=== PATIENT | female | born 1980 | race Caucasian/White ===

== ENCOUNTER 2016-09-11 07:04 | Day surgery (SDC) | payer OTHER ==
[~2016-09-11] VITALS: Ht 152.4 cm; Wt 75.0 kg
[2016-09-11] VITALS (14 sets, daily range): BP systolic 97–147; BP diastolic 54–83; PULSE 58–78; RESP 9–22; Ht 152.4 cm; Wt 75.0 kg
[~2016-09-11 07:04] MED LIST: CEFAZOLIN 1 GM INJ ONE; SEVOFLURANE 15 MIN ONE
[2016-09-11] MEDS ORDERED: MULTI PO (08:08)
[2016-09-11 08:30] LABS: INR 0.94; PROTIME 12.6 Sec (12.2-14.2)
[2016-09-11 08:31] LABS: PARTIAL THROMBOPLASTIN TIME 34.6 Sec (25.0-35.0)
[2016-09-11 08:32] LABS: BASOPHILS % 0.6 % (0.0-2.0); EOSINOPHILS # 0.1 10^3/ul (0.0-0.5); EOSINOPHILS % 1.8 % (0.0-7.0); HEMATOCRIT 36.9 % (37.0-47.0); HEMOGLOBIN 12.6 g/dl (12.0-16.0); LYMPHOCYTES # 1.3 10^3/ul (0.8-2.9); LYMPHOCYTES % 37.7 % (15.0-51.0); MEAN CORPUSCULAR HGB CONC 34.1 g/dl (32.0-37.0); MEAN CORPUSCULAR VOLUME 87.9 fl (82.0-101.0); MONOCYTE # 0.3 10^3/ul (0.3-0.9); MONOCYTES % 7.3 % (0.0-11.0); NEUTROPHIL # 1.8 10^3/ul (1.6-7.5); NEUTROPHILS % 52.3 % (39.0-77.0); PLATELET COUNT 191 10^3/UL (140-415); RED CELL DISTRIBUTION WIDTH 12.5 % (11.5-14.5); WHITE BLOOD COUNT 3.4 10^3/ul (4.8-10.8)
[2016-09-11] MEDS ORDERED: FENTAnyl 50 MCG/ML VIAL ONE ×2 (08:35→09:49)
[2016-09-11] MEDS ORDERED: ONDANSETRON 4 MG INJ ONE ×2 (08:35→09:49)
[2016-09-11] MEDS ORDERED: PROPOFOL 20 ML ONE (08:35)
[2016-09-11] MEDS ORDERED: HYDROmorphONE 2 MG/ML SYG ONE (08:35)
[2016-09-11] MEDS ORDERED: ROCURONIUM 50 MG INJ ONE (08:35)
[2016-09-11] MEDS ORDERED: DEXAMETHASONE 4 MG/ML 1 ML INJ ONE (08:35)
[2016-09-11] MEDS ORDERED: MIDAZOLAM 1 MG/ML 2 ML INJ ONE (08:35)
[2016-09-11 08:49] LABS: ALBUMIN 4.7 g/dl (3.3-4.9); ALBUMIN/GLOBULIN RATIO 1.46; BILIRUBIN,INDIRECT 0.4 mg/dl (0-1.1); BILIRUBIN,TOTAL 0.4 mg/dl (0.2-1.3); TOTAL PROTEIN 7.9 g/dl (6.1-8.1)
[2016-09-11] MEDS ORDERED: SUGAMMADEX SODIUM 200 MG/2 ML VIAL IV ONE ×2 (09:14→09:20)
[2016-09-11] MEDS ORDERED: HYDROCODONE/APAP (5/325) TAB PO ONE (09:30)
[2016-09-11] MEDS ORDERED: SOD CHLORIDE 0.9% 1,000 ML IV ONE (09:30)
[2016-09-11] MEDS ORDERED: CEFAZOLIN 2 GM/50 ML (PMX) 50 ML IVPB ONE (09:30)
[2016-09-11] MEDS ORDERED: ACETAMINOPHEN 1000MG/100ML IV 100 ML ONE (09:31)
--- NOTE | 2016-09-11 09:33 | OPR ---
Date/Time of Note Date/Time of Note DATE: 09/11/16 TIME: 09:27 Operative Report Procedure Date: Sep 11, 2016 Preoperative Diagnosis incarcerated ventral hernia Postoperative Diagnosis same Operation Performed 1. laparoscopic incarcerated ventral hernia repair cpt code 17273 2. implantation of mesh cpt code 77534 3. therapeutic injection of subcutaneous marcaine cpt code 72709 4. laparoscopic lysis of adhesions Surgeon: Patrick HIGGINS Complications: None Indications This is a 36-year-old female with an incarcerated ventral hernia. She requires surgical repair. Risks alternatives benefits in personal discussed the patient. Patient expresses understanding and consents to the operation. Procedure Description Patient is taken to the OR and prepped and draped in usual sterile fashion. Surgical timeout was performed. IV antibiotics given. Left upper quadrant 5 mm transverse subcostal incision is made with a 15 blade. Using a 5 mm optical trocar optical entry is performed. Pneumoperitoneum is established. Left flank 12 mm optical trocar left lower quadrant 5 mm optical trochars were placed under direct visualization. Upon initial inspection there is incarcerated ventral hernia contents. Laparoscopic lysis of adhesions performed to mobilize the contents. The contents are fully reduced. The hernia is identified. The hernia is closed primarily with interrupted #1 Prolenes using Endo Close and laparoscopic techniques. Using underlay mesh the hernia defect is covered. The mesh used is a 10 x [address] mesh. This is secured in place with secure straps with approximately 4-5 cm of coverage in all directions. There is good hemostasis. Ports are removed under direct visualization. Skin is closed using skin parviz. Therapeutic subcutaneous injection of Marcaine along all port sites and incisions are placed. Dry dressings were applied. Patrick HIGGINS Sep 11, 2016 09:33
[2016-09-11] MEDS ORDERED: BUPIVACAINE 0.25% (MPF) 10 ML 10 ML VIAL INJ ONE (09:43)
[2016-09-11] MEDS: ONDANSETRON 4 MG INJ IV PRN ×2 (09:57→10:50)
[2016-09-11] MEDS ORDERED: DIPHENHYDRAMINE 50 MG INJ IV PRN (10:00)
[2016-09-11] MEDS ORDERED: FENTAnyl 50 MCG/ML VIAL IV PRN ×2 (10:00)
[2016-09-11] MEDS ORDERED: KETOROLAC 30 MG INJ IV PRN (10:00)
[2016-09-11] MEDS ORDERED: MIDAZOLAM 1 MG/ML 2 ML INJ IV PRN (10:00)
[2016-09-11] MEDS ORDERED: HYDROmorphONE (0.2 MG/ML) 10ML SYG IV PRN ×3 (10:00)
[2016-09-11] MEDS ORDERED: MEPERIDINE 25 MG INJ IV PRN (10:00)
[2016-09-11 10:17] LABS: CALCIUM 9.2 mg/dl (8.4-10.2); CREATININE 0.56 mg/dl (0.44-1.00); POTASSIUM 3.8 mmol/L (3.5-5.1)
[2016-09-11] MEDS ORDERED: HYDROmorphONE 1 MG/ML SYG ONE (10:44)
[2016-09-11] MEDS ORDERED: HYDROmorphONE 2 MG/ML SYG IV PRN ×3 (10:49→10:50)
== END 2016-09-11 13:15 | disposition home or self-care (01) ==
LOC: SDS 07:04
PROVIDERS: ATTEND Surgery
DX: K43.6 Other and unspecified ventral hernia with obstruction, without gangrene (principal); E66.9 Obesity, unspecified; Z68.32 Body mass index [BMI] 32.0-32.9, adult
CPT/HCPCS: 49653; 80053; 84703; 85025; 85610; 85730; C1781; J0131; J0690; J1100; J1170; J1885; J2250; J2405; J3010; Z7512; Z7610

== ENCOUNTER 2016-09-13 08:21 | Emergency (ER) | payer OTHER ==
[~2016-09-13] VITALS: Ht 160 cm; Wt 80.0 kg
[~2016-09-13 08:21] MED LIST changes: -CEFAZOLIN 1 GM INJ ONE; +MULTI PO; -SEVOFLURANE 15 MIN ONE
[2016-09-13 08:24] VITALS: Ht 160 cm; Wt 80.0 kg
[2016-09-13] MEDS ORDERED: morphine 4 MG/ML VIAL IV STA ×2 (09:01→13:51)
[2016-09-13] MEDS ORDERED: ONDANSETRON 4 MG INJ IV STA (09:01)
[2016-09-13 09:34] LABS: BASOPHILS % 0.2 % (0.0-2.0); EOSINOPHILS # 0.1 10^3/ul (0.0-0.5); EOSINOPHILS % 0.6 % (0.0-7.0); HEMATOCRIT 37.5 % (37.0-47.0); HEMOGLOBIN 12.8 g/dl (12.0-16.0); LYMPHOCYTES # 1.4 10^3/ul (0.8-2.9); LYMPHOCYTES % 14.2 % (15.0-51.0); MEAN CORPUSCULAR HEMOGLOBIN 30.5 pg (29.0-33.0); MEAN CORPUSCULAR HGB CONC 34.1 g/dl (32.0-37.0); MEAN CORPUSCULAR VOLUME 89.5 fl (82.0-101.0); MONOCYTE # 0.6 10^3/ul (0.3-0.9); MONOCYTES % 6.7 % (0.0-11.0); NEUTROPHIL # 7.4 10^3/ul (1.6-7.5); NEUTROPHILS % 77.9 % (39.0-77.0); PLATELET COUNT 229 10^3/UL (140-415); RED BLOOD COUNT 4.19 10^6/ul (4.20-5.40); RED CELL DISTRIBUTION WIDTH 12.8 % (11.5-14.5); WHITE BLOOD COUNT 9.5 10^3/ul (4.8-10.8)
--- NOTE | 2016-09-13 09:41 | RADRPT ---
PROCEDURE: XR Chest. CLINICAL INDICATION: Shortness of breath TECHNIQUE: Single frontal view of the chest was obtained COMPARISON: None FINDINGS: The heart and mediastinum are within normal limits. The lungs are clear. There is no pleural effusion or pneumothorax. RPTAT: AA IMPRESSION: No acute disease. .Mike Mann MD, MD Date Time Electronically viewed and signed by .Mike Mann MD, on 09/13/2016 09:40 .S/
[2016-09-13 09:43] LABS: ADD UMIC YES; UR ASCORBIC ACID NEGATIVE (NEGATIVE); UR BACTERIA FEW /HPF (NONE SEEN); UR BILIRUBIN (Dip) NEGATIVE (NEGATIVE); UR BLOOD (Dip) 2+ mg/dL (NEGATIVE); UR CLARITY CLEAR (CLEAR); UR COLOR YELLOW (YELLOW); UR GLUCOSE (Dip) NEGATIVE (NEGATIVE); UR KETONES (Dip) TRACE mg/dL (NEGATIVE); UR LEUKOCYTE ESTERASE (Dip) NEGATIVE Leu/ul (NEGATIVE); UR MUCUS FEW /HPF (NONE SEEN); UR NITRITE (Dip) NEGATIVE (NEGATIVE); UR RBC 5 /HPF (0-5); UR SPECIFIC GRAVITY (Dip) 1.009 (1.003-1.030); UR TOTAL PROTEIN (Dip) NEGATIVE (NEGATIVE); UR UROBILINOGEN (Dip) NEGATIVE (NEGATIVE)
[2016-09-13 09:51] LABS: ALBUMIN 4.7 g/dl (3.3-4.9); ALBUMIN/GLOBULIN RATIO 1.34; BILIRUBIN,INDIRECT 0.5 mg/dl (0-1.1); BILIRUBIN,TOTAL 0.5 mg/dl (0.2-1.3); CALCIUM 9.3 mg/dl (8.4-10.2); CREATININE 0.55 mg/dl (0.44-1.00); POTASSIUM 3.9 mmol/L (3.5-5.1); TOTAL PROTEIN 8.2 g/dl (6.1-8.1)
[2016-09-13] MEDS ORDERED: IOHEXOL 300MG/ML 150 ML BTL ONE (13:06)
[2016-09-13] MEDS ORDERED: SOD CHLORIDE 0.9% 100 ML ONE (13:06)
--- NOTE | 2016-09-13 13:38 | RADRPT ---
PROCEDURE: CT Abdomen and Pelvis with contrast. CLINICAL INDICATION: Abdomen and pelvis pain. Recent surgery for abdominal wall hernia. TECHNIQUE: CT scan of the abdomen and pelvis with contrast was performed. The patient was scanned following the uncomplicated intravenous administration of 100 cc of Omnipaque-300. Coronal and sag ittal reformatted images were obtained from the axial source images. Images were reviewed on a high- resolution PACS workstation. Total exam DLP is 1054.13 mGy-cm. CTDIvol is 18.68 mGy. One or more of the following dose reduction techniques were used: Automated exposure control, adjustment of the mA and/or kV according to patient size, use of iterative reconstruction technique. COMPARISON: None. FINDINGS: There is mild atelectasis at both lung bases posteriorly. The lung bases are otherwise normal. The re is no pleural effusion or pericardial effusion. The heart size is normal. The liver is normal in size and attenuation. There is no focal hepatic lesion. The gallbladder and bile ducts are normal. The spleen is normal in size. There is no focal splenic lesion. Both adrenals are normal with no enlargement or mass. The pancreas is unremarkable with no mass or evidence of pancreatitis. Both kidneys demonstrate normal contrast enhancement. There is no renal mass or hydronephrosis. The abdominal aorta is not dilated. There is no retroperitoneal lymphadenopathy or mass. There is no pelvic lymphadenopathy. The uterus is enlarged and multiple fibroids are present in the uterus. The bladder and distal ureters are normal. The periappendiceal region is unremarkable with no evidence of appendicitis. There has been recent surgery with left upper quadrant skin parviz, skin parviz in the umbilicus, and a small amount of intraperitoneal free air. There is mild thickening of the anterior abdominal wall in the region of the umbilicus. A small amount of herniated omentum is present at this site. There is no herniated bowel. The bowel and mesentery are otherwise normal. There is no free fluid. The osseous structures are unremarkable with no fracture or lytic lesion. IMPRESSION: 1. Mild atelectasis at the lung bases posteriorly. 2. Enlarged uterus with multiple fibroids. 3. Postoperative changes. 4. Small amount of herniated omentum at the surgical site in the umbilicus. No herniated bowel at this site or elsewhere. 5. Otherwise unremarkable study RPTAT: QQ .Sathish Ascencio MD, MD Date Time Electronically viewed and signed by .Sathish Ascencio MD, on 09/13/2016 13:38 .R/
[2016-09-13 13:54] VITALS: BP 112/57; PULSE 78; RESP 18; TEMP 97.8
--- NOTE | 2016-09-13 14:01 | ERD ---
ER Documentation Chief Complaint Date/Time DATE: 09/13/16 TIME: 13:57 Chief Complaint S/P HERNIA REPAIR LAST SUNDAY, HAS PAIN AT THE SITE HPI 36-year-old female patient with no significant past medical history presents to the ED complaining of postoperative abdominal pain after a status post laparoscopic ventral hernia performed on September 11, [address] Higgins. Describes the pain as sharp and rates it a 9 out of 10. States that she is nauseous but denies any vomiting. Patient presents due to pain that is not relieved with [place]. Reports that her last menses on September 05, 2016. Denies any chest pain, shortness of breath, diarrhea, constipation, fever, chills, cough, dysuria, urgency, frequency, hematuria, bloody stools, hemoptysis, hematemesis. ROS All systems reviewed and are negative except as per history of present illness. Medications Home Meds Reported Medications Multivitamins* (Theragran*) 1 Tab Tab, 1 TAB PO DAILY, TAB 09/11/16 Allergies Allergies: Coded Allergies: No Known Allergy (Unverified , 09/08/16) PMhx/Soc History of Surgery: Yes (CSECTION X3, HERNIA) Anesthesia Reaction: No Hx Neurological Disorder: No Hx Respiratory Disorders: No Hx Cardiac Disorders: No Hx Psychiatric Problems: No Hx Miscellaneous Medical Probl: No Hx Alcohol Use: No Hx Substance Use: No Hx Tobacco Use: No Physical Exam Vitals Vital Signs Date Time Temp Pulse Resp B/P Pulse Ox O2 Delivery O2 Flow Rate FiO2 09/13/16 13:54 97.8 78 18 112/57 99 Room Air 09/13/16 08:24 98.9 76 18 144/72 99 Physical Exam Const: Dmb-kyw-yeahghdua, well-nourished. In no acute distress. Head: Atraumatic, normocephalic Eyes: Normal Conjunctiva without injection. No purulent discharge. ENT: Normal external ear, nose. Moist oropharynx without tonsillar exudates. Non -erythematous pharynx. Uvula midline. No drooling. No trismus. Neck: No cervical midline tenderness. Full range of motion. No meningismus. No cervical lymphadenopathy. No JVD. Resp: Clear to auscultation bilaterally. No wheezing, rhonchi, rales, or crackles. No accessory muscle use. No retractions. Cardio: Regular rate and rhythm. No murmurs, rubs or gallops. Abd: Soft, diffuse mid abdominal tenderness with 3 well healing laparoscopic lacerations with parvzi keeping it intact, non distended. No diseases. Normal bowel sounds. No palpable masses. No rebound tenderness. No guarding. Negative McBurney's point. Negative psoas sign. Negative obturator sign. Skin: No petechiae or rashes. Laparoscopic lacerations - no fluctuance or induration, no erythema or edema, no bleeding noted, no purulent discharge. Back: No midline tenderness. No CVA tenderness. Ext: No cyanosis, or edema. Neur: Awake and alert. Normal gait. Normal coordination. Psych: Normal Mood and Affect Result Diagram: 09/13/1691909/13/16919 Results 24 hrs Laboratory Tests Test 09/13/16 09:20 White Blood Count 9.510^3/ul Red Blood Count 4.1910^6/ul Hemoglobin 12.8g/dl Hematocrit 37.5% Mean Corpuscular Volume 89.5fl Mean Corpuscular Hemoglobin 30.5pg Mean Corpuscular Hemoglobin Concent 34.1g/dl Red Cell Distribution Width 12.8% Platelet Count 77884^3/UL Mean Platelet Volume 11.0fl Neutrophils % 77.9% Lymphocytes % 14.2% Monocytes % 6.7% Eosinophils % 0.6% Basophils % 0.2% Nucleated Red Blood Cells % 0.0/100WBC Neutrophils # 7.410^3/ul Lymphocytes # 1.410^3/ul Monocytes # 0.610^3/ul Eosinophils # 0.110^3/ul Basophils # 0.010^3/ul Nucleated Red Blood Cells # 0.010^3/ul Urine Color YELLOW Urine Clarity CLEAR Urine pH 6.0 Urine Specific [place] 1.009 Urine Ketones TRACEmg/dL Urine Nitrite NEGATIVEmg/dL Urine Bilirubin NEGATIVEmg/dL Urine Urobilinogen NEGATIVEmg/dL Urine Leukocyte Esterase NEGATIVELeu/ul Urine Microscopic RBC 5/HPF Urine Microscopic WBC 1/HPF Urine Bacteria FEW/HPF Urine Mucus FEW/HPF Urine Hemoglobin 2+mg/dL Urine Glucose NEGATIVEmg/dL Urine Total Protein NEGATIVEmg/dl Sodium Level 144mmol/L Potassium Level 3.9mmol/L Chloride Level 102mmol/L Carbon Dioxide Level 28mmol/L Anion Gap 18 Blood Urea Nitrogen 12mg/dl Creatinine 0.55mg/dl Glucose Level 97mg/dl Calcium Level 9.3mg/dl Total Bilirubin 0.5mg/dl Direct Bilirubin 0.00mg/dl Indirect Bilirubin 0.5mg/dl Aspartate Amino Transf (AST/SGOT) 26IU/L Alanine Aminotransferase (ALT/SGPT) 43IU/L Alkaline Phosphatase 52IU/L Total Protein 8.2g/dl Albumin 4.7g/dl Globulin 3.50g/dl Albumin/Globulin Ratio 1.34 Lipase 32U/L Current Medications Medications (Trade) Dose Ordered Sig/David Route PRN Reason Start Time Stop Time Status Last Admin Dose Admin Morphine Sulfate (morphine) 4 mg ONCE STAT IV 09/13/16 09:01 09/13/16 09:05 DC 09/13/16 09:41 Ondansetron HCl (Zofran Inj) 4 mg ONCE STAT IV 09/13/16 09:01 09/13/16 09:06 DC 09/13/16 09:41 IV Flush 10 ml 10 ml STK-MED ONCE .ROUTE 09/13/16 13:06 09/13/16 13:07 DC 09/13/16 13:34 Sodium Chloride (NS) 100 ml @ ud STK-MED ONCE .ROUTE 09/13/16 13:06 09/13/16 13:07 DC 09/13/16 13:34 Iohexol (Omnipaque 300mg/ ml) 150 ml STK-MED ONCE .ROUTE 09/13/16 13:06 09/13/16 13:07 DC 09/13/16 13:35 Morphine Sulfate (morphine) 4 mg ONCE STAT IV 09/13/16 13:51 09/13/16 13:53 DC Procedures/MDM This is a 36-year-old female patient with no significant past medical history presents the ED complaining of postoperative pain after a status post ventral hernia repair. Patient is afebrile and nontoxic-appearing. Patient has normal vital signs. Patient was further worked up with CBC, CMP, lipase, UA, urine , CT of abdomen and pelvis with contrast. Patient's pain and symptoms have improved after treatment with 4 mg IV morphine, 4 mg IV Zofran. CBC: No leukocytosis. No e/o of systemic infection. No e/o anemia. CMP: No e/o severe acidosis, alkalosis, renal failure, diabetic ketoacidosis, liver disease Lipase within normal limits. Urine: No leukocyte esterase, no nitrites, no hematuria. Urine : Negative PROCEDURE: CT Abdomen and Pelvis with contrast. CLINICAL INDICATION: Abdomen and pelvis pain. Recent surgery for abdominal wall hernia. TECHNIQUE: CT scan of the abdomen and pelvis with contrast was performed. The patient was scanned following the uncomplicated intravenous administration of 100 cc of Omnipaque-300. Coronal and sagittal reformatted images were obtained from the axial source images. Images were reviewed on a high- resolution PACS workstation. Total exam DLP is 1054.13 mGy-cm. CTDIvol is 18.68 mGy. One or more of the following dose reduction techniques were used: Automated exposure control, adjustment of the mA and/or kV according to patient size, use of iterative reconstruction technique. COMPARISON: None. FINDINGS: There is mild atelectasis at both lung bases posteriorly. The lung bases are otherwise normal. There is no pleural effusion or pericardial effusion. The heart size is normal. The liver is normal in size and attenuation. There is no focal hepatic lesion. The gallbladder and bile ducts are normal. The spleen is normal in size. There is no focal splenic lesion. Both adrenals are normal with no enlargement or mass. The pancreas is unremarkable with no mass or evidence of pancreatitis. Both kidneys demonstrate normal contrast enhancement. There is no renal mass or hydronephrosis. The abdominal aorta is not dilated. There is no retroperitoneal lymphadenopathy or mass. There is no pelvic lymphadenopathy. The uterus is enlarged and multiple fibroids are present in the uterus. The bladder and distal ureters are normal. The periappendiceal region is unremarkable with no evidence of appendicitis. There has been recent surgery with left upper quadrant skin parviz, skin parviz in the umbilicus, and a small amount of intraperitoneal free air. There is mild thickening of the anterior abdominal wall in the region of the umbilicus. A small amount of herniated omentum is present at this site. There is no herniated bowel. The bowel and mesentery are otherwise normal. There is no free fluid. The osseous structures are unremarkable with no fracture or lytic lesion. IMPRESSION: 1. Mild atelectasis at the lung bases posteriorly. 2. Enlarged uterus with multiple fibroids. 3. Postoperative changes. 4. Small amount of herniated omentum at the surgical site in the umbilicus. No herniated bowel at this site or elsewhere. 5. Otherwise unremarkable study PROCEDURE: XR Chest. CLINICAL INDICATION: Shortness of breath TECHNIQUE: Single frontal view of the chest was obtained COMPARISON: None FINDINGS: The heart and mediastinum are within normal limits. The lungs are clear. There is no pleural effusion or pneumothorax. RPTAT: AA IMPRESSION: No acute disease. Patient likely has postoperative pain secondary to her recent surgery, 2 days ago for her ventral hernia. There is low suspicion for deep space abscess, pneumonia, DVT, pneumothorax, urinary tract infection, gastritis, GERD, peptic ulcer disease, cholecystitis, choledocholithiasis, cholangitis, pancreatitis, appendicitis, bowel obstruction, ileus, volvulus, nephrolithiasis, pyelonephritis, hepatitis, perforated viscus, diverticulitis, abdominal hernia, acute abdomen, mesenteric ischemia or other emergent conditions. This case was discussed with my supervising physician, Dr. Nolan who agreed with the management and discharge plan. Follow up with Dr. Higgins tomorrow for further evaluation and treatment. Instructed patient to return to the ED sooner for any worsening symptoms. Patient's questions were answered. Patient understood and agreed with discharge plan. Patient discharged stable. Departure Diagnosis: Primary Impression: Postoperative abdominal pain Condition: Stable Patient Instructions: What Are Fibroids?, Post Op Wound Check, Pain Referrals: Patrick HIGGINS [facility] YOU HAVE RECEIVED A MEDICAL SCREENING EXAM AND THE RESULTS INDICATE THAT YOU DO NOT HAVE A CONDITION THAT REQUIRES URGENT TREATMENT IN THE EMERGENCY DEPARTMENT. FURTHER EVALUATION AND TREATMENT OF YOUR CONDITION CAN WAIT UNTIL YOU ARE SEEN IN YOUR DOCTORS OFFICE WITHIN THE NEXT 1-2 DAYS. IT IS YOUR RESPONSIBILITY TO MAKE AN APPOINTMENT FOR FOLOW-UP CARE. IF YOU HAVE A PRIMARY DOCTOR --you should call your primary doctor and schedule an appointment IF YOU DO NOT HAVE A PRIMARY DOCTOR YOU CAN CALL OUR PHYSICIAN REFERRAL HOTLINE AT IF YOU CAN NOT AFFORD TO SEE A PHYSICIAN YOU CAN CHOSE FROM THE FOLLOWING [facility] [address] [facility] [address] [facility]. [facility] [address] [facility] [address] [facility] [address] [facility]. [facility] [address] [facility]. [facility] YOU HAVE RECEIVED A MEDICAL SCREENING EXAM AND THE RESULTS INDICATE THAT YOU DO NOT HAVE A CONDITION THAT REQUIRES URGENT TREATMENT IN THE EMERGENCY DEPARTMENT. FURTHER EVALUATION AND TREATMENT OF YOUR CONDITION CAN WAIT UNTIL YOU ARE SEEN IN YOUR DOCTORS OFFICE WITHIN THE NEXT 1-2 DAYS. IT IS YOUR RESPONSIBILITY TO MAKE AN APPOINTMENT FOR FOLOW-UP CARE. IF YOU HAVE A PRIMARY DOCTOR --you should call your primary doctor and schedule and appointment IF YOU DO NOT HAVE A PRIMARY DOCTOR YOU CAN CALL OUR PHYSICIAN REFERRAL HOTLINE AT . IF YOU CAN NOT AFFORD TO SEE A PHYSICIAN YOU CAN CHOSE FROM THE FOLLOWING [facility] INSTITUTIONS: [facility] [address] [place] [address] [facility] [address] [place], [place] [id number] [place] [address] [address] [place] [address] [facility] URGENT CARE/SPECIALTIES Additional Instructions: Siga tomando [place] carlos sea necesario para el dolor La medicina que se le recet puede causarle sueo.NO DEBE MANEJAR NI OPERAR MAQUINARIAS PELIGROSAS mientras esta tomando esta medicina! Visite a [facility]rison mdicoDr. [place] para un EXAMEN.Regrese a estas instalaciones si no se mejora carlos esperbamos o carlos le dijimos. JONY BLAKE PA-C Sep 13, 2016 14:01
== END 2016-09-13 14:04 | disposition home or self-care (01) ==
LOC: FTE 08:21
DX: R10.9 Unspecified abdominal pain (principal); G89.18 Other acute postprocedural pain
CPT/HCPCS: 36415; 71010; 74177; 80053; 81001; 83690; 85025; 96374; 96375; J2270; J2405; Q9967; Z7502; Z7610